=== PATIENT | male | born 2000 | race Hispanic/Latino ===

== ENCOUNTER 2018-12-25 21:05 | Emergency (ER) | payer OTHER ==
[~2018-12-25] VITALS: Ht 170.2 cm; Wt 111.8 kg
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
--- NOTE | 2018-12-25 22:13 | Diagnostic Imaging Report ---
Examination: CT head without contrast Clinical Indication: Severe headache with nausea and dizziness. Technique: Transaxial noncontrast images from the skull base through the vertex were obtained. Sagittal and coronal reformatted images were done. Dose modulation, iterative reconstruction, and/or weight based adjustment of the mA/kV was utilized to reduce the radiation dose to as low as reasonably achievable. Comparison: None. Findings: Scalp: No abnormalities. Bones: Intact. No fractures. No blastic or lytic lesions. Brain sulci: Appropriate for patient's age. Ventricles: Normal in size and configuration. No hydrocephalus. Extra-axial space: No abnormalities. Parenchyma: No abnormal densities. No masses, hemorrhage, or acute or chronic cortical based vascular insults. Suprasellar region: No abnormalities. Craniocervical junction: The foramen magnum is patent. No Chiari one malformation. Impression: No intracranial abnormality. Signed by: Dr. Kiersten Artis M.D. on 12/25/2018 10:10 PM
[2018-12-26 06:09] VITALS: BP 141/74
== END 2018-12-25 23:30 | disposition home or self-care (01) ==
LOC: FSED 21:05
DX: R51 Headache (principal); R11.0 Nausea; R42 Dizziness and giddiness; R53.1 Weakness
CPT/HCPCS: 70450; 80053; 80307; 85025